=== PATIENT | female | born 1970 | race Caucasian/White ===

== ENCOUNTER 2025-01-13 09:11 | Outpatient (AMB) | payer MEDICAID, SELFPAY ==
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
[2025-01-13 09:44] VITALS: BP 112/78; PULSE 78; RESP 19; TEMP 36.6; O2SAT 100; BMI 31.7
== END 2025-01-13 10:01 | disposition home or self-care (01) ==
PROVIDERS: Supervising Provider Orthopaedic Surgery Adult Reconstructive Orthopaedic Surgery; Visit Provider Orthopaedic Surgery Adult Reconstructive Orthopaedic Surgery
DX: S82.114D Nondisplaced fracture of right tibial spine, subsequent encounter for closed fracture with routine healing (principal); V89.2XXD Person injured in unspecified motor-vehicle accident, traffic, subsequent encounter; M25.561 Pain in right knee
CPT/HCPCS: 99204; G0463

== ENCOUNTER 2025-01-28 11:15 | Outpatient (AMB) | payer MEDICAID, SELFPAY ==
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
== END 2025-01-28 11:18 | disposition home or self-care (01) ==
LOC: HODSRG 11:15
PROVIDERS: Supervising Provider Orthopaedic Surgery Adult Reconstructive Orthopaedic Surgery; Visit Provider Orthopaedic Surgery Adult Reconstructive Orthopaedic Surgery
DX: S82.111A Displaced fracture of right tibial spine, initial encounter for closed fracture (principal); M17.11 Unilateral primary osteoarthritis, right knee; X58.XXXA Exposure to other specified factors, initial encounter
CPT/HCPCS: 99212; 99213; G0463

== ENCOUNTER 2025-02-15 08:54 | Outpatient (AMB) | payer MEDICAID, SELFPAY ==
[2025-02-15 09:27] VITALS: BP 117/81; PULSE 96; RESP 18; TEMP 36.3; O2SAT 97; BMI 32.3
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
== END 2025-02-15 10:25 | disposition home or self-care (01) ==
LOC: HODSRG 08:54
PROVIDERS: Supervising Provider Orthopaedic Surgery Adult Reconstructive Orthopaedic Surgery; Visit Provider Orthopaedic Surgery Adult Reconstructive Orthopaedic Surgery
DX: S82.111A Displaced fracture of right tibial spine, initial encounter for closed fracture (principal); X58.XXXA Exposure to other specified factors, initial encounter
CPT/HCPCS: 20610; 99213; J3301; J3490; G0463

== ENCOUNTER 2025-04-28 08:53 | Outpatient (AMB) | payer MEDICAID, SELFPAY ==
[2025-04-28 09:13] VITALS: BP 109/77; PULSE 88; RESP 18; TEMP 36.8; O2SAT 100; BMI 32.1
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
== END 2025-04-28 09:32 | disposition home or self-care (01) ==
PROVIDERS: Supervising Provider Orthopaedic Surgery Adult Reconstructive Orthopaedic Surgery; Visit Provider Orthopaedic Surgery Adult Reconstructive Orthopaedic Surgery
DX: S82.111A Displaced fracture of right tibial spine, initial encounter for closed fracture (principal); X58.XXXA Exposure to other specified factors, initial encounter
CPT/HCPCS: 20610; 99213; J3301; J3490; G0463

== ENCOUNTER 2025-07-28 10:21 | Outpatient (AMB) | payer MEDICAID, SELFPAY ==
[2025-07-28 10:45] VITALS: BP 120/78; PULSE 93; RESP 19; TEMP 36.8; O2SAT 97; BMI 32.1
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
== END 2025-07-28 11:14 | disposition home or self-care (01) ==
LOC: HODSRG 10:21
PROVIDERS: Supervising Provider Orthopaedic Surgery Adult Reconstructive Orthopaedic Surgery; Visit Provider Orthopaedic Surgery Adult Reconstructive Orthopaedic Surgery
DX: S82.111D Displaced fracture of right tibial spine, subsequent encounter for closed fracture with routine healing (principal); M25.561 Pain in right knee; V89.2XXD Person injured in unspecified motor-vehicle accident, traffic, subsequent encounter
CPT/HCPCS: 20610; 99213; J1010; J2795; G0463

== ENCOUNTER 2025-11-08 07:50 | Outpatient (AMB) | payer MEDICAID, SELFPAY ==
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
[2025-11-08 08:08] VITALS: BP 113/79; PULSE 84; RESP 18; TEMP 36.5; O2SAT 98; BMI 29.9
== END 2025-11-08 08:29 | disposition home or self-care (01) ==
LOC: HODSRG 07:50
PROVIDERS: Supervising Provider Orthopaedic Surgery Adult Reconstructive Orthopaedic Surgery; Visit Provider Orthopaedic Surgery Adult Reconstructive Orthopaedic Surgery
DX: M25.561 Pain in right knee (principal); M17.11 Unilateral primary osteoarthritis, right knee; S82.111D Displaced fracture of right tibial spine, subsequent encounter for closed fracture with routine healing; V89.2XXD Person injured in unspecified motor-vehicle accident, traffic, subsequent encounter
CPT/HCPCS: 20610; 99213; J1010; J2795; G0463